=== PATIENT | female | born 1970 | race Caucasian/White ===

== ENCOUNTER → 2024-04-13 | Outpatient (CLI) | payer SELFPAY | END | disposition home or self-care (01) | PROVIDERS: PCP Nurse Practitioner Family; Referring Provider Nurse Practitioner Family; Visit Provider Nurse Practitioner Family | DX: R00.2 Palpitations (principal); Z82.49 Family history of ischemic heart disease and other diseases of the circulatory system | CPT/HCPCS: 93225; 93226 ==

== ENCOUNTER → 2024-04-16 | Outpatient (CLI) | payer SELFPAY ==
--- NOTE | 2024-04-16 07:00 | ECHOD_ITS ---
Reason For Study: Palpitations Procedure This was a 2D Doppler, Color Flow transthoracic echocardiogram. The study was technically difficult. Contrast injection was performed. Exam performed in department. Left Ventricle Normal LV size. The estimated ejection fraction is 65 %. No evidence for diastolic dysfunction. No regional wall motion abnormalities noted. Right Ventricle Normal RV size. Normal systolic function. Atria The left and right atria are normal. No doppler evidence for ASD. Mitral Valve There is no mitral valve stenosis. No mitral valve insufficiency. Tricuspid Valve There is no tricuspid stenosis. Unable to estimate RV systolic pressure due to inadequate jet, pulmonary artery pressure probably normal. Aortic Valve Trisinus/trileaflet aortic valve. There is no aortic stenosis. No aortic valve insufficiency. Pulmonic Valve There is no pulmonic valvular stenosis. No pulmonic valve insufficiency. Great Vessels Normal aortic root. Pericardium/Pleural No pericardial effusion. Medication 22 gauge I.V. with prn adaptor inserted into right arm. Diluted definity 2.5ml given slow IV push to enhance endocardial definition. MMode/2D Measurements & Calculations LVIDd: 4.8 cm IVSd: 1.2 cm Ao root diam: 3.2 cm LVIDs: 3.1 cm LVPWd: 1.0 cm RVDd: 3.9 cm FS: 35.6 % LAV(MOD-bp): 47.8 ml LVAd ap4: 32.1 cm2 SV(MOD-sp4): 61.9 ml LAV(MOD-bp) Indexed: 21.6 ml/m2 LVLd ap4: 8.2 cm SI(MOD-sp4): 28.0 ml/m2 LAV(MOD-sp2): 41.7 ml EDV(MOD-sp4): 103.4 ml LAV(MOD-sp4): 47.6 ml EDV(sp4-el): 106.3 ml LVAs ap4: 18.3 cm2 LVLs ap4: 6.7 cm ESV(MOD-sp4): 41.6 ml ESV(sp4-el): 42.5 ml EF(MOD-sp4): 59.8 % EF(sp4-el): 60.0 % SV(sp4-el): 63.8 ml LA A4 area: 18.1 cm2 LA dimension(2D): 4.3 cm RA A4 area: 14.5 cm2 TAPSE: 2.5 cm Time Measurements MV dec time: 0.23 sec Doppler Measurements & Calculations MV E max iron: 78.8 cm/sec Lat Peak E' Iron: 14.3 cm/sec Med Peak E' Iron: 11.0 cm/sec MV A max iron: 89.1 cm/sec E/E' lat: 5.5 E/E' med: 7.2 MV E/A: 0.88 MV V2 max: 93.7 cm/sec MV P1/2t max iron: 76.8 cm/sec Ao V2 max: 145.9 cm/sec MV max P.5 mmHg MV P1/2t: 61.2 msec Ao max P.5 mmHg MV V2 mean: 54.6 cm/sec MV dec slope: 367.2 cm/sec2 Ao V2 mean: 96.5 cm/sec MV mean P.4 mmHg MVA(P1/2t): 3.6 cm2 Ao mean P.3 mmHg MV V2 VTI: 21.0 cm Ao V2 VTI: 29.4 cm AV (velocity ratio): 0.88 LV V1 max: 120.3 cm/sec PA V2 max: 116.4 cm/sec TR max iron: 244.9 cm/sec LV V1 max P.8 mmHg TR max P.0 mmHg LV V1 mean P.0 mmHg LV V1 mean: 79.5 cm/sec LV V1 VTI: 25.8 cm ECHO/Echo Complete W/ Contrast Interpretation Summary The estimated ejection fraction is 65 %. No evidence for diastolic dysfunction. Ordering Physician: Jonelle Sesay Referring Physician: Jonelle Sesay Performed By: Nacho Caicedo RCS
[2024-04-16 10:16] LABS: Cholesterol 206 mg/dL (200); High Density Lipoprotein 64 mg/dL; Triglycerides 84 mg/dL; Very Low Density Lipoprotein 17 mg/dL (5-40)
--- NOTE | 2024-04-20 10:43 | STRESSREP_ITS ---
Stress Test Report Date: 04/16/2024 Procedure: Pharmacologic stress nuclear imaging study Indications: Palpitations Consent: Per the patient Procedure: The patient underwent pharmacologic (Regadenoson) evaluation with a peak heart rate of 111 beats per minute (66%predicted maximal heart rate) and a peak blood pressure of 150/82 mmHg. The baseline ECG demonstrated normal sinus rhythm, nonspecific ST-T changes. EKG during lexiscan infusion revealed no significant ischemic changes. EKG post infusion revealed no significant ischemic changes [There were no cardiac dysrhythmias pretest, during pharmacologic infusion, or recovery]. [There was no complaint of chest discomfort during pharmacologic infusion or recovery]. The examination was discontinued secondary to completion of protocol. Impression: 1. Lexiscan stress test test is negative for Lexiscan infusion induced EKG changes of ischemia. 2. Lexiscan stress test test is negative for Lexiscan infusion induced chest pain. 3. Results of the nuclear portion of the test is as below Myocardial perfusion imaging study: Technique: The patient was injected with 14.1 millicuries of technetium 99m Cardiolite and subsequently rest SPECT Cardiolite nuclear imaging was obtained in the horizontal long, vertical long, and short axis views. The patient underwent pharmacologic [Regadenoson 0.4mg] evaluation. Please see above for details. The patient was injected with 45 millicuries of technetium 99m Cardiolite and subsequently stress SPECT Cardiolite nuclear imaging was obtained in the horizontal long, vertical long, and short axis views. A gated Cardiolite study at peak stress was obtained. Interpretation: Rest and stress SPECT Cardiolite nuclear imaging status post realignment, normalization, and attenuation correction demonstrate no evidence of significant ischemia or infarction. Gated images reveal septal and inferior hypokinesis which could be artifactual due to extracardiac uptake adjacent to the inferior wall. The reported LVEF is 68%. Impression: 1. There is no evidence of significant ischemia or infarction. 2. Estimated ejection fraction is 68%. This note was generated with [employer] software. It may contain incorrect words, spelling, and punctuation that were not noted in checking the note before signing.
== END | disposition home or self-care (01) ==
PROVIDERS: Internal Medicine Cardiovascular Disease; PCP Nurse Practitioner Family; Referring Provider Nurse Practitioner Family; Visit Provider Nurse Practitioner Family
DX: R00.2 Palpitations (principal); E78.5 Hyperlipidemia, unspecified; Z82.49 Family history of ischemic heart disease and other diseases of the circulatory system
CPT/HCPCS: 36415; 78452; 80061; 93017; 93306; A9500; Q9957; A4216; C8929; J2785